=== PATIENT | female | born 1960 | race Caucasian/White ===

== ENCOUNTER 2023-10-31 19:32 | Emergency (ER) | payer BC ==
[~2023-10-31] VITALS: Ht 162.6 cm; Wt 63.0 kg
[2023-10-31] MEDS: HALOPERIDOL LACTATE 5MG/ML VIAL IM ONE (20:10)
[2023-10-31 20:17] VITALS: O2SAT 100
[2023-10-31] MEDS: MIDAZOLAM HCL 2 MG/2 ML VIAL IM ONE (20:17)
[2023-10-31 20:51] LABS: BASOPHILS % 0.8 % (0.0-2.0); EOSINOPHILS % 0.3 % (0.0-5.0); HEMOGLOBIN. 12.6 g/dL (12.0-16.0); LYMPHOCYTES % 8.1 % (20.0-50.0); MEAN CORPUSCULAR HEMOGLOBIN 30.6 pg (28.0-32.0); MEAN CORPUSCULAR HGB CONC 34.2 g/dL (31.0-37.0); MEAN CORPUSCULAR VOLUME 89.5 fL (81.0-99.0); MEAN PLATELET VOLUME 6.1 fl (7.4-10.4); MONOCYTES % 7.7 % (2.0-8.0); NEUTROPHILS % 83.1 % (40.0-76.0); PLATELET 280 x1000/uL (130-400); RED BLOOD CELL COUNT 4.13 mill/uL (4.2-5.4); RED CELL DISTRIBUTION WIDTH 13.8 % (11.6-14.6)
[2023-10-31 20:57] LABS: CHLORIDE 103 mEq/L (98-107); SODIUM 139 mEq/L (136-145)
[2023-10-31 20:58] LABS: CARBON DIOXIDE 27 mEq/L (21-32)
[2023-10-31 21:03] LABS: CREATININE 0.9 mg/dL (0.6-1.0); GLUCOSE 230 mg/dL (70-105)
[2023-10-31 21:04] LABS: UREA NITROGEN BLOOD 19 mg/dL (9-23)
[2023-10-31 21:05] LABS: ACETAMINOPHEN < 2 ug/mL (10-30); ALANINE AMINOTRANSFERASE 7 IU/L (10-49); ALBUMIN 4.6 g/dL (3.2-4.8); ASPARTATE AMINOTRANSFERASE 20 IU/L (<34)
[2023-10-31 21:06] LABS: BILIRUBIN TOTAL 0.5 mg/dL (0.1-1.0)
[2023-10-31 21:07] LABS: ETHANOL BLOOD < 10 mg/dL (<10)
[2023-10-31 22:56] LABS: CLARITY URINE CLEAR (CLEAR); COLOR URINE YELLOW (YELLOW); GLUCOSE URINE TRACE (NEGATIVE); KETONES URINE 1+ (NEGATIVE); LEUKOCYTE ESTERASE URINE NEGATIVE (NEGATIVE); NITRITE URINE NEGATIVE (NEGATIVE); OCCULT BLOOD URINE TRACE (NEGATIVE); PH URINE 6.5 (4.5-8.0); PROTEIN URINE TRACE (NEGATIVE); SPECIFIC GRAVITY URINE 1.017 (1.005-1.030)
[2023-10-31 23:07] LABS: *AMPHETAMINES SCREEN URINE NEGATIVE (NEGATIVE)
[2023-10-31 23:08] LABS: *BARBITURATES SCREEN URINE NEGATIVE (NEGATIVE); *BENZODIAZEPINES SCREEN URINE PRESUMPTIVE POSITIVE (NEGATIVE); *COCAINE SCREEN URINE NEGATIVE (NEGATIVE); CANNABINOID URINE SCREEN NEGATIVE (NEGATIVE); ECSTASY MDMA SCREEN URINE NEGATIVE (NEGATIVE); METHADONE URINE SCREEN NEGATIVE (NEGATIVE); OPIATES URINE SCREEN NEGATIVE (NEGATIVE); PHENCYCLIDINE URINE SCREEN NEGATIVE (NEGATIVE)
[2023-10-31] MEDS ORDERED: POTASSIUM CHLORIDE 20MEQ/PACKET PO ONE (23:15)
[2023-10-31 23:23] LABS: BACTERIA URINE 1+; RBC URINE 0-2 /hpf (0-2); SQUAMOUS EPITHELIAL CELL URINE 1+ /lpf (RARE/1+); WBC URINE 0-2 /hpf (0-2)
[2023-11-01] MEDS: POTASSIUM CHLORIDE 20MEQ/PACKET PO NR (01:27)
[2023-11-01] MEDS ORDERED: HYDROXYZINE 25MG TABLET PO PRN (10:30)
[2023-11-01] MEDS: DIVALPROEX SODIUM 250MG ER TABLET PO SCH (10:49)
[2023-11-02 18:48] VITALS: BP 153/76; PULSE 96; RESP 16; TEMP 98.4
[2023-11-02] MEDS ORDERED: DIVALPROEX SODIUM 125MG DR TABLET PO SCH (21:00)
== END 2023-11-02 19:32 ==
LOC: ER 19:32
DX: R45.1 Restlessness and agitation (principal); F31.9 Bipolar disorder, unspecified; Z20.822 Contact with and (suspected) exposure to COVID-19
CPT/HCPCS: 80053; 80305; 81003; 80307; 80329; 80320; 85025; 36415; 96372; 99291; 87426; J1630; J2250; Z7610; G0480